=== PATIENT | female | born 2000 | race Caucasian/White ===

== ENCOUNTER 2020-05-25 18:49 | Emergency (ER) | payer OTHER ==
[~2020-05-25] VITALS: Ht 172.7 cm; Wt 56.7 kg
[2020-05-25 19:31] LABS: URINE BILIRUBIN NEGATIVE (Negative); URINE BLOOD 3+ (Negative); URINE COLOR YELLOW; URINE GLUCOSE-RANDOM NEGATIVE (Negative); URINE KETONES 2+ (Negative); URINE LEUKOCYTES-REFLEX NEGATIVE (Negative); URINE NITRITE-REFLEX NEGATIVE (Negative); URINE PROTEIN NEGATIVE (Negative); URINE SPECIFIC GRAVITY >= 1.030 (1.005-1.030); URINE UROBILINOGEN 0.2 E.U./dl (0.2-1.0)
[2020-05-25 19:36] LABS: URINE CLARITY HAZY
[2020-05-25 19:43] LABS: BACTERIA-REFLEX None Seen /HPF (None Seen); CASTS None Seen /LPF (None Seen); CRYSTALS None Seen /LPF (None Seen); MUCUS 4-6 Moderate strn/LPF (None Seen); SQUAMOUS 4-10 Moderate /LPF (0-3); URINE RBC >20 Many /HPF (0-2); URINE WBC-REFLEX None Seen /HPF (0-5)
[2020-05-25 21:37] LABS: PLATELET ESTIMATE ADEQUATE
[2020-05-25 21:48] LABS: HEMATOCRIT 35.8 % (37.0-47.0); HEMOGLOBIN 12.4 gm/dL (12.0-15.0); RBC 4.03 mil/uL (4.20-5.00); WBC 9.5 thou/uL (4.0-11.0)
[2020-05-25 21:49] LABS: MCH 30.7 pg (26.0-34.0); MCHC 34.6 g/dL (28.0-37.0); MCV 88.8 fL (80.0-100.0); MPV 7.9 fl. (7.2-11.1); PLATELET COUNT* 249 thou/uL (150-400); RDW-CV 13.3 % (10.5-14.5)
[2020-05-25 21:53] LABS: CALCIUM 8.9 mg/dL (8.5-10.1); CREATININE 0.7 mg/dL (0.6-1.3); POTASSIUM 3.6 mmol/L (3.5-5.1)
[2020-05-25] MEDS ORDERED: ONDANSETRON HCL4 M2 PO (21:53)
[2020-05-25] MEDS ORDERED: BENTYL 20 MG TA20 M1 PO (21:53)
[2020-05-25] MEDS ORDERED: NAPROSYN500 MG PO (21:53)
[2020-05-25 21:57] LABS: ALBUMIN 4.2 g/dL (3.4-5.0); TOTAL BILIRUBIN 1.1 mg/dL (<0.1-1.0); TOTAL PROTEIN 7.3 g/dL (6.4-8.2)
[2020-05-25 22:16] LABS: POLYS 82.4 %
[2020-05-25 22:18] LABS: ABSOLUTE NEUTROPHILS 7.8 thou/uL (1.6-8.1)
[2020-05-25 22:19] LABS: ABSOLUTE LYMPHOCYTES 1.3 thou/uL (0.8-5.3); LYMPHOCYTES 13.8 %
[2020-05-25 22:20] LABS: ABSOLUTE MONOCYTES 0.3 thou/uL (0.0-1.2); MONOCYTES 3.6 %
[2020-05-25 22:21] LABS: EOSINOPHILS 0.1 %
[2020-05-25 22:22] LABS: BASOPHILS 0.1 %
[2020-05-25 22:58] VITALS: BP 98/57
== END 2020-05-25 22:59 | disposition home or self-care (01) ==
LOC: M.ERS 18:49
PROVIDERS: Nurse Practitioner Family
DX: N94.6 Dysmenorrhea, unspecified (principal); R19.7 Diarrhea, unspecified; R11.2 Nausea with vomiting, unspecified